=== PATIENT | male | born 1965 | race Caucasian/White ===

== ENCOUNTER → 2023-11-11 06:31 | Day surgery (SDC) | payer OTHER, SELFPAY ==
[2023-11-11 08:50] LABS: Glucose - Point of Care 98 mg/dl (70-99)
== END ==
LOC: GI 06:31
PROVIDERS: ATTENDING PHYSICIAN Internal Medicine Gastroenterology
DX: I85.10 Secondary esophageal varices without bleeding (principal); K74.60 Unspecified cirrhosis of liver; K21.00 Gastro-esophageal reflux disease with esophagitis, without bleeding; K76.6 Portal hypertension; R12 Heartburn
CPT/HCPCS: 43235; 82962

== ENCOUNTER → 2025-05-19 18:31 | Emergency (ER) | payer OTHER, SELFPAY ==
[2025-05-19 18:39] VITALS: BP 165/115
[2025-05-19 19:02] LABS: Hematocrit 47.0 % (39.0-52.0); Hemoglobin 16.4 g/dL (13.0-18.0); Mean Corp Hgb Conc. 34.9 g/dL (33.0-37.0); Mean Corpuscular Volume 87.5 fL (80.0-94.0); Nucleated Red Blood Cells % 0 % (-); Platelet Count 120 10^3/uL (130-400); Red Cell Dist. Width 12.2 % (11.5-14.5)
[2025-05-19 19:03] LABS: Urine Character Clear (Clear)
[2025-05-19 19:14] LABS: Urine Red Blood Cell None Seen /HPF (0-2); Urine Squamous Cell 0-2 /LPF (Few); Urine White Cell 0-2 /HPF (0-5)
[2025-05-19 19:32] LABS: Blood Urea Nitrogen 14 mg/dl (9-20); Calcium 9.6 mg/dl (8.4-10.2); Carbon Dioxide 26 mmol/L (22-30); Chloride 99 mmol/L (98-107); Glucose 370 mg/dl (70-99); Sodium 132 mmol/L (135-145); eGFR > 60.00
[2025-05-19 19:42] VITALS: BP 160/93
--- NOTE | 2025-05-19 19:45 | ED.GENMED ---
History of Present Illness
General
Chief Complaint: Male Genito-Urinary Symptoms
Source: patient
Time Seen by Provider: 05/19/25 19:29
History of Present Illness
History of Present Illness:
59-year-old male presents emergency department with complaints of right scrotal pain that has had for the past 5 to 7 days. He states that he does lifting in his job and wonders if this is related. He denies fever, chills, abdominal pain, pelvic
pain, incontinence, retention, dysuria, urgency, frequency, hematuria, discharge, or other complaints. Patient has a history of a varicocele status post repair on the left.
Past History
Past History
ED Past Medical History: GERD, HTN, NIDDM and Other (Obesity)
ED Past Surgical History: Urological
Social History
Tobacco: Non-smoker
Alcohol: None
Drug: None
Personal:
Living: with family
Employment: Employed
Family History
Family History: Hypertension
Phy Exam
Physical Exam
Physical Exam:
GENERAL: Alert , in no apparent distress
EYE: pupils equal and reactive
NECK: Supple, no significant adenopathy.
ENT: o/p clr, mmm.
CARDIAC: Regular rate and rhythm .
LUNGS: Clear breath sounds bilaterally, no acute respiratory distress, no wheezes/rales/rhonchi
ABDOMEN: Soft, without focal tenderness, no r/g, no cvat
NEUROLOGICAL: Alert and oriented, no focal neuro deficits
SKIN: Warm and dry, skin intact.
MUSCULOSKELETAL: No edema, well perfused.
PSYCH: Normal and appropriate interaction.
: Rn Maryjane present, nontender to palpation bilat testicles, mild edema ntoed R scrotal area with thickening of skin (suspect chronic), no bright erythema, fluctuance, or other abnormalities. No penile lesions or discharge noted. No abnormal
orientation of testicles..
Course
Orders/Labs/Results
Orders:
Orders
05/19/25 18:39
Scrotum US [US Scrotum] Urgent
Comment:
Reason For Exam: right testicular pain
05/19/25 18:51
Basic Metabolic Panel Urgent
Complete Blood Count/With Diff Urgent
Urinalysis Reflex To Culture Urgent
Date Specimen was Collected: 05/19/25
Time Specimen was Collected: 18:42
Urine Microscopic Reflex Cult Urgent
05/19/25 20:00
Ketorolac [Toradol] 15 mg .ROUTE .STK-MED ONE
05/19/25 20:01
Ketorolac [Toradol] 15 mg IM NOW STA
Abnormal Lab Results
05/19/25
18:51
WBC 11.9 H 10^3/uL
(4.8-10.8)
Plt Count 120 L 10^3/uL
(130-400)
MPV 12.0 H fL
(7.4-10.4)
Absolute Neuts (auto) 8.2 H 10^3/uL
(1.4-6.5)
Absolute Monos (auto) 1.4 H 10^3/uL
(0.1-0.6)
Lymphocytes % 17.9 L %
(20.5-51.1)
Monocytes % 11.7 H %
(1.7-9.3)
Sodium 132 L mmol/L
(135-145)
Creatinine 0.6 L mg/dL
(0.7-1.3)
Glucose 370 H mg/dl
(70-99)
Urine Glucose 4+ A
(Negative)
Urine Albumin (Reflex) 1+ A
(Neg - Trace)
05/19/25 18:51
05/19/25 18:51
Vital Signs
Initial and Last Documented VS:
Initial Vital Signs
Temp Pulse Resp BP Pulse Ox
98.5 F 115 18 165/115 98
05/19/25 18:39 05/19/25 18:39 05/19/25 18:39 05/19/25 18:39 05/19/25 18:39
Last Documented Vital Signs
Temp Pulse Resp BP Pulse Ox
98.5 F 103 24 160/93 93
05/19/25 18:39 05/19/25 21:15 05/19/25 21:15 05/19/25 19:42 05/19/25 21:15
*Pulse Oximetry
SaO2: 98
Oxygen Mode of Delivery: Room air
Patient hypoxic: no
*Critical Care Note
Total Time (30-74mins, 75-104mins- exclusive of procedures): Not Applicable
Update Note
Update Note:
Patient presents to the Emergency Department with ____right testicle pain
Number and Complexity of Problems Addressed at the Encounter
� Chronic conditions affecting care:
� Acute Exacerbation and/or Progression of Chronic Illness:
� Differential Diagnosis includes: But not limited to hydrocele, varicocele, epididymitis, torsion, etc. etc.
Amount and/or Complexity of Data to be Reviewed and Analyzed
� I performed an independent evaluation of and my interpretation is:
EKG:
CT:
Xrays:
Laboratory Studies: Generally unremarkable, mild nonspecific minor abnormalities, urine not suggestive of infection
Other:us No sonographic evidence for testicular torsion or epididymoorchitis.
2. Simple left epididymal head cyst.
3. Bilateral varicoceles.
4. Bilateral scrotal wall edema.
� Review of other/old records reveals:
� Clinical information was obtained by an independent historian:
� Prescriptions/Medications Considered but not given:
� Further testing considered but not performed:
Risk of Complications and/or Morbidity or Mortality of Patient Management
� Social determinants of health affecting care:
� Discussion with other providers (PCP, Hospitalists, Consultants, etc):
� Escalation of care including admission/observation vs risk of discharge considered: Patient noted to have varicocele, no torsion or epididymoorchitis. Stable for discharge with close urology follow-up. Of note, no signs or
symptoms to suggest cellulitis, Latanya's, etc. Ptrequesting work note, avoid heavy lifting, which is reasonable until seen by uro.
ED Attending Note
-
Portions of this chart may have been created with voice recognition software.� Occasional wrong word or��sound alike� substitutions may have occurred due to the inherent limitations of voice recognition software.
Discharge Plan
Departure
Patient Disposition: Home (Routine Discharge)
Date of Disposition: 05/19/25
Time of Disposition: 22:11
Patient with high blood pressure during this ER visit?: Yes
Condition: Good
Discharge Problem:
Right varicocele, Left varicocele
Instructions: Varicocele, BLOOD PRESSURE
Prescriptions:
No Action
Aller-7
2 tab PO DAILY PRN (Reason: allergies)
Rhinocort
2 puff intranasal DAILY
fexofenadine [Mucinex Allergy] 180 MG tablet
180 mg PO DAILY
amoxicillin-pot clavulanate 1 TABLET tablet
1 tab PO Q12 Qty: 20 0RF
amoxicillin-pot clavulanate 1 TABLET tablet
1 tab PO BID Qty: 14 0RF
amoxicillin-pot clavulanate 1 TABLET tablet
1 tab PO Q12 Qty: 19 0RF
ondansetron 4 mg Tablet,Disintegrating
4 mg PO TIDPRN PRN (Reason: nausea/vomiting) Qty: 9 0RF
Referrals:
Tanner Mcdonald MD [Family Provider, Family Practice]
Nolan Meza MD [Active, Urology] - Next open appointment
Stand Alone Forms: Return to Work
Activity Restrictions/Additional Instructions:
IF YOU DEVELOP INCREASING NEW OR PERSISTENT PAIN, FEVER, DISCHARGE, BLEEDING, DIFFICULTY URINATING, PAIN WITH URINATION, OR OTHER WORRISOME SIGNS, PLEASE RETURN TO THE ER IMMEDIATELY!
Interventions
Interventions:
*Risk Screen - Suicide Last Done: 05/19/25 18:39
*General Assessment Last Done: 05/19/25 18:39
*Neglect/Abuse Screening Last Done: 05/19/25 18:39
*ED- Fall Risk Assessment Last Done: 05/19/25 18:39
*ED COVID-19 Vaccine History Last Done: 05/19/25 18:39
ED-Male Genitourinary Assessment Last Done: 05/19/25 20:05
Discharge Date and Time
Print Language: LEBANESE
[2025-05-19] MEDS: TORADOL 15 MG IM (20:02)
[2025-05-19 20:03] VITALS: BMI 39.7
[2025-05-19 22:33] VITALS: BP 128/75
== END | disposition home or self-care (01) ==
LOC: EMR 18:31
PROVIDERS: Emergency Medicine; EMERGENCY PHYSICIAN Emergency Medicine; FAMILY PHYSICIAN Family Medicine; REFERRING PHYSICIAN Specialist
DX: I86.1 Scrotal varices (principal); K21.9 Gastro-esophageal reflux disease without esophagitis; I10 Essential (primary) hypertension; E11.9 Type 2 diabetes mellitus without complications; E66.9 Obesity, unspecified; Z79.84 Long term (current) use of oral hypoglycemic drugs; Z82.49 Family history of ischemic heart disease and other diseases of the circulatory system
CPT/HCPCS: 99284; 96372; 76870; 80048; 81003; 81015; 85025; 93976

== ENCOUNTER 2025-05-21 10:27 | Inpatient (IN) | payer OTHER, SELFPAY ==
[2025-05-21] VITALS (28 sets, daily range): BP systolic 112–164; BP diastolic 78–105; BMI 38.5; BMI 39.3
--- NOTE | 2025-05-21 05:25 | ED.GENMED ---
History of Present Illness
<WILLOW Joy - Last Filed: 05/21/25 10:41>
General
Chief Complaint: Male Genito-Urinary Symptoms
Source: patient
Exam Limitations: none
Time Seen by Provider: 05/21/25 06:05
Nursing documentation reviewed up to this point in time: agreed with
History of Present Illness
History of Present Illness:
Patient is a 59-year-old male with past medical history of varicocele hypertension diverticulitis, diabetes presents to the ER for evaluation. Patient was seen here several nights ago in May 19. He has a chronic varicocele and is supposed to
follow with urology. Patient reports yesterday and last night however he started having issues with his urine. He has been incontinent and reports he cannot control his urine. He still complains of some pain in the entire scrotum and the abdomen.
Patient had ultrasound done here 2 days ago which was negative for torsion or epididymoorchitis patient has bilateral varicoceles
Past History
<Stu Ortiz DO - Last Filed: >
Past History
ED Past Medical History: GERD, HTN, NIDDM and Other (Obesity)
ED Past Surgical History: Urological
Social History
Tobacco: Non-smoker
Alcohol: None
Drug: None
Personal:
Living: with family
Employment: Employed
Family History
Family History: Hypertension
Phy Exam
<WILLOW Joy - Last Filed: 05/21/25 10:41>
General Physical Exam
General Presentation: no apparent distress
General age: appears stated age
General Skin: warm and dry
General Habitus: normal
Sepsis
<WILLOW Joy - Last Filed: 05/21/25 10:41>
Sepsis Screening
Sepsis Assessment: Sepsis Ruled Out
Sepsis Screen
Sepsis Screen: Sepsis Ruled Out
Date: 05/21/25
Time: 10:41
<Baljit Lombardo MD - Last Filed: 05/21/25 19:15>
Sepsis Screen
Sepsis Screen: Sepsis Ruled Out
Date: 05/21/25
Time: 19:15
<Stu Ortiz DO - Last Filed: >
Sepsis Screen
Sepsis Screen: Possible Sepsis
Date: 05/21/25
Time: 05:25
Course
<WILLOW Joy - Last Filed: 05/21/25 10:41>
Orders/Labs/Results
Orders:
Orders
05/21/25 06:21
IV Insert/Care/Rem.- Treatment PRN
0.9% Sodium Chloride 1000 ml [Nss] 1,000 ml IV BOLUS
Ketorolac [Toradol] 15 mg IV NOW STA
05/21/25 06:22
CT Abd/Pel (IV only)-[facility] only Urgent
Comment:
Reason For Exam: lower abd pain
05/21/25 06:24
Complete Blood Count/With Diff Urgent
Comprehensive Metabolic Panel Urgent
Glycohemoglobin (HgbA1c) Urgent
05/21/25 08:08
Bladder Scan- Treatment ONCE
05/21/25 08:11
Electrocardiogram (*1) Stat
Reason for Study: Other
Other Reason for Exam: chest pain
Cardiac Monitoring- Treatment ONCE
EKG- Treatment ONCE
05/21/25 08:15
Vancomycin [Vancocin] 2,000 mg 0.9% Sodium Chloride 500 ml [Nss] 500 ml IV NOW
05/21/25 08:17
Diltiazem HCl [Cardizem] 10 mg IV NOW STA
Piperacillin/Tazo 3.375 Gram [Zosyn] 3.375 gram in 50 ml IV NOW
05/21/25 08:30
Diltiazem 125 mg/125 ml Nss [Cardizem] 125 mg in 125 ml IV PER PROTOCOL
Initial dose in mg/hr, then titrate:: 5
Titrate to keep:: Heart rate 80-100 bpm
Titrate by mg/hr:: 5 mg/hr
Frequency of titrations (minutes):: 15
Maximum dose in mg/hr:: 15
05/21/25 08:35
Lactic Acid Q4H
Comment: CANCEL 2nd LACTIC ACID IF 1st LACTIC ACID IS LESS THAN 2
Blood Culture Q30M
[place] Source: Blood/Venous
Specimen Description:
05/21/25 08:49
UROLOGY CONSULT Urgent
Consulting Provider: Diego Valladares
Was physician already notified: Yes
05/21/25 08:53
Blood Culture Q30M
[place] Source: Blood/Venous
Specimen Description:
05/21/25 09:11
Urinalysis Reflex To Culture Urgent
Date Specimen was Collected: 05/21/25
Time Specimen was Collected: 09:06
Urine Microscopic Reflex Cult Urgent
05/21/25 09:12
EKG [Electrocardiogram (*1)] Urgent
Reason for Study: Other
Other Reason for Exam: converted to sinus tach
EKG- Treatment ONCE
05/21/25 09:18
Catheter- Indwelling As Directed
Reason for insertion: Urology Determination
Nursing to Place Non Medication Order As Directed
Physician Order: keep scrotum elevated on towel roll
Above order entered?: Yes
05/21/25 Lunch
2000 calorie (17 carb) Diabetic
At Your Request: Full Participation
Tamsulosin [Flomax] 0.4 mg PO DAILY
05/21/25 10:09
Admit/Transfer Patient As Directed
Co-Sign Provider:
Level of Care: Inpatient admission
Assign to:: Telemetry
Physician / Group: Spike Anton
Diagnosis: scrotal infection, afib
Reason for Telemetry: Arrhythmia
Date to Stop Telemetry: 05/24/25
Time to Stop Telemetry: 11:00
Reason for Hospitalization: scrotal infection, afib
Expected length of stay greater than two midnights?: Yes
ELOS- Estimated Length of Stay in days: 3
I certify the patient meets the requirements for IP care: Yes
PRN Pain Medication Management As Directed
May give lesser potent ordered pain med per pt: Yes
preference::
Protocol:: Medication orders for pain may be administered in a
manner that supports deferring to patient preference
when the pt is:
- Requesting an ordered lesser potent pain medication.
Least to most potent pain medications are defined
as: acetaminophen < NSAID < tramadol < opioids
(morphine, oxycodone, hydromorphone).
- Requesting a lesser dose of the same medication IF
ORDERED.
- Requesting a less intrusive route of administration
if both routes are prescribed by the provider (PO <
IV).
05/21/25 10:13
Code Status As Directed
Resuscitation Status: Full Code
05/21/25 12:08
Bedside Glucose Monitoring As Directed
Frequency: AC&HS
Additional Instructions:: Change to q6h if pt on TPN, tube feeding or not eating
05/21/25 14:18
Acetaminophen [Tylenol] 650 mg PO Q4HPRN PRN
Bisacodyl [Dulcolax] 10 mg RECTAL [id number] PRN
Docusate W/Senna [Senokot-S] 1 tablet PO BIDPRN PRN
Oxycodone [Roxicodone] 10 mg PO Q4HPRN PRN
Oxycodone [Roxicodone] 5 mg PO Q4HPRN PRN
Polyethylene Glycol Powder [Miralax] 17 grams PO DAILYPRN PRN
05/21/25 14:18
Add On- LAB Routine
Tests Added?: HgbA1C to today's lab
CARDIOLOGY CONSULT Routine
Consulting Provider: Dario Awad
Was physician already notified: Yes
Reason for consult: afib - new
Activity As Directed
Activity Level: As Tolerated
Vital Signs As Directed
Frequency: Per unit guidelines
05/21/25 16:00
Ampicillin/Sulbactam 3 G [Unasyn] 3 gm 0.9% Sodium Chloride 100 ml [Nss] 100 ml IV Q6H
05/21/25 17:00
METFORMIN HCl [Glucophage] 500 mg PO BID@0800,1700
05/22/25 06:00
Basic Metabolic Panel IN AM
Complete Blood Count/No Diff IN AM
05/23/25 06:00
Basic Metabolic Panel IN AM
Complete Blood Count/No Diff IN AM
05/24/25 06:00
Basic Metabolic Panel IN AM
Complete Blood Count/No Diff IN AM
05/24/25 11:00
DC Protocol for Telemetry ONCE
Abnormal Lab Results
05/21/25 05/21/25 05/21/25
06:24 09:01 09:11
WBC 12.8 H 10^3/uL
(4.8-10.8)
Plt Count 107 L 10^3/uL
(130-400)
MPV 12.2 H fL
(7.4-10.4)
Abs Immat Gran (auto) 0.1 H 10^3/uL
(0-0.05)
Absolute Neuts (auto) 8.9 H 10^3/uL
(1.4-6.5)
Absolute Monos (auto) 1.6 H 10^3/uL
(0.1-0.6)
Immature Gran % 0.6 H %
(0-0.5)
Lymphocytes % 16.0 L %
(20.5-51.1)
Monocytes % 12.7 H %
(1.7-9.3)
Sodium 133 L mmol/L
(135-145)
Glucose 448 H mg/dl
(70-99)
Alkaline Phosphatase 130 H U/L
(38-126)
Albumin 3.3 L g/dl
(3.5-5.0)
Urine Ketones 1+ A
(Negative)
Urine Bacteria (Reflex) Few A
(Negative)
Urine Glucose 4+ A
(Negative)
Urine Albumin (Reflex) 1+ A
(Neg - Trace)
POC Glucose 334 H mg/dl
(70-99)
05/21/25 06:24
05/21/25 06:24
Vital Signs
Initial and Last Documented VS:
Initial Vital Signs
Temp Pulse Resp BP Pulse Ox
97.8 F 88 20 140/80 96
05/21/25 05:02 05/21/25 05:02 05/21/25 05:02 05/21/25 05:02 05/21/25 05:02
Last Documented Vital Signs
Temp Pulse Resp BP Pulse Ox
98.3 F 98 20 158/95 93
05/21/25 14:13 05/21/25 15:42 05/21/25 14:13 05/21/25 15:42 05/21/25 14:13
Tug Boat Captain consulted with Physician
Tug Boat Captain consulted with physician?: Yes
Name of Physician Consulted: BRUCE
<Baljit Lombardo MD - Last Filed: 05/21/25 19:15>
Orders/Labs/Results
Orders:
Orders
05/21/25 06:21
IV Insert/Care/Rem.- Treatment PRN
0.9% Sodium Chloride 1000 ml [Nss] 1,000 ml IV BOLUS
Ketorolac [Toradol] 15 mg IV NOW STA
05/21/25 06:22
CT Abd/Pel (IV only)-[facility] only Urgent
Comment:
Reason For Exam: lower abd pain
05/21/25 06:24
Complete Blood Count/With Diff Urgent
Comprehensive Metabolic Panel Urgent
Glycohemoglobin (HgbA1c) Urgent
05/21/25 08:08
Bladder Scan- Treatment ONCE
05/21/25 08:11
Electrocardiogram (*1) Stat
Reason for Study: Other
Other Reason for Exam: chest pain
Cardiac Monitoring- Treatment ONCE
EKG- Treatment ONCE
05/21/25 08:15
Vancomycin [Vancocin] 2,000 mg 0.9% Sodium Chloride 500 ml [Nss] 500 ml IV NOW
05/21/25 08:17
Diltiazem HCl [Cardizem] 10 mg IV NOW STA
Piperacillin/Tazo 3.375 Gram [Zosyn] 3.375 gram in 50 ml IV NOW
05/21/25 08:30
Diltiazem 125 mg/125 ml Nss [Cardizem] 125 mg in 125 ml IV PER PROTOCOL
Initial dose in mg/hr, then titrate:: 5
Titrate to keep:: Heart rate 80-100 bpm
Titrate by mg/hr:: 5 mg/hr
Frequency of titrations (minutes):: 15
Maximum dose in mg/hr:: 15
05/21/25 08:35
Lactic Acid Q4H
Comment: CANCEL 2nd LACTIC ACID IF 1st LACTIC ACID IS LESS THAN 2
Blood Culture Q30M
[place] Source: Blood/Venous
Specimen Description:
05/21/25 08:49
UROLOGY CONSULT Urgent
Consulting Provider: Diego Valladares
Was physician already notified: Yes
05/21/25 08:53
Blood Culture Q30M
[place] Source: Blood/Venous
Specimen Description:
05/21/25 09:11
Urinalysis Reflex To Culture Urgent
Date Specimen was Collected: 05/21/25
Time Specimen was Collected: 09:06
Urine Microscopic Reflex Cult Urgent
05/21/25 09:12
EKG [Electrocardiogram (*1)] Urgent
Reason for Study: Other
Other Reason for Exam: converted to sinus tach
EKG- Treatment ONCE
05/21/25 09:18
Catheter- Indwelling As Directed
Reason for insertion: Urology Determination
Nursing to Place Non Medication Order As Directed
Physician Order: keep scrotum elevated on towel roll
Above order entered?: Yes
05/21/25 Lunch
2000 calorie (17 carb) Diabetic
At Your Request: Full Participation
Tamsulosin [Flomax] 0.4 mg PO DAILY
05/21/25 10:09
Admit/Transfer Patient As Directed
Co-Sign Provider:
Level of Care: Inpatient admission
Assign to:: Telemetry
Physician / Group: Spike Anton
Diagnosis: scrotal infection, afib
Reason for Telemetry: Arrhythmia
Date to Stop Telemetry: 05/24/25
Time to Stop Telemetry: 11:00
Reason for Hospitalization: scrotal infection, afib
Expected length of stay greater than two midnights?: Yes
ELOS- Estimated Length of Stay in days: 3
I certify the patient meets the requirements for IP care: Yes
PRN Pain Medication Management As Directed
May give lesser potent ordered pain med per pt: Yes
preference::
Protocol:: Medication orders for pain may be administered in a
manner that supports deferring to patient preference
when the pt is:
- Requesting an ordered lesser potent pain medication.
Least to most potent pain medications are defined
as: acetaminophen < NSAID < tramadol < opioids
(morphine, oxycodone, hydromorphone).
- Requesting a lesser dose of the same medication IF
ORDERED.
- Requesting a less intrusive route of administration
if both routes are prescribed by the provider (PO <
IV).
05/21/25 10:13
Code Status As Directed
Resuscitation Status: Full Code
05/21/25 12:08
Bedside Glucose Monitoring As Directed
Frequency: AC&HS
Additional Instructions:: Change to q6h if pt on TPN, tube feeding or not eating
05/21/25 14:18
Acetaminophen [Tylenol] 650 mg PO Q4HPRN PRN
Bisacodyl [Dulcolax] 10 mg RECTAL [id number] PRN
Docusate W/Senna [Senokot-S] 1 tablet PO BIDPRN PRN
Oxycodone [Roxicodone] 10 mg PO Q4HPRN PRN
Oxycodone [Roxicodone] 5 mg PO Q4HPRN PRN
Polyethylene Glycol Powder [Miralax] 17 grams PO DAILYPRN PRN
05/21/25 14:18
Add On- LAB Routine
Tests Added?: HgbA1C to today's lab
CARDIOLOGY CONSULT Routine
Consulting Provider: Dario Awad
Was physician already notified: Yes
Reason for consult: afib - new
Activity As Directed
Activity Level: As Tolerated
Vital Signs As Directed
Frequency: Per unit guidelines
05/21/25 16:00
Ampicillin/Sulbactam 3 G [Unasyn] 3 gm 0.9% Sodium Chloride 100 ml [Nss] 100 ml IV Q6H
05/21/25 17:00
METFORMIN HCl [Glucophage] 500 mg PO BID@0800,1700
05/22/25 06:00
Basic Metabolic Panel IN AM
Complete Blood Count/No Diff IN AM
05/23/25 06:00
Basic Metabolic Panel IN AM
Complete Blood Count/No Diff IN AM
05/24/25 06:00
Basic Metabolic Panel IN AM
Complete Blood Count/No Diff IN AM
05/24/25 11:00
DC Protocol for Telemetry ONCE
Abnormal Lab Results
05/21/25 05/21/25 05/21/25
06:24 09:01 09:11
WBC 12.8 H 10^3/uL
(4.8-10.8)
Plt Count 107 L 10^3/uL
(130-400)
MPV 12.2 H fL
(7.4-10.4)
Abs Immat Gran (auto) 0.1 H 10^3/uL
(0-0.05)
Absolute Neuts (auto) 8.9 H 10^3/uL
(1.4-6.5)
Absolute Monos (auto) 1.6 H 10^3/uL
(0.1-0.6)
Immature Gran % 0.6 H %
(0-0.5)
Lymphocytes % 16.0 L %
(20.5-51.1)
Monocytes % 12.7 H %
(1.7-9.3)
Sodium 133 L mmol/L
(135-145)
Glucose 448 H mg/dl
(70-99)
Alkaline Phosphatase 130 H U/L
(38-126)
Albumin 3.3 L g/dl
(3.5-5.0)
Urine Ketones 1+ A
(Negative)
Urine Bacteria (Reflex) Few A
(Negative)
Urine Glucose 4+ A
(Negative)
Urine Albumin (Reflex) 1+ A
(Neg - Trace)
POC Glucose 334 H mg/dl
(70-99)
05/21/25 06:24
05/21/25 06:24
Vital Signs
Initial and Last Documented VS:
Initial Vital Signs
Temp Pulse Resp BP Pulse Ox
97.8 F 88 20 140/80 96
05/21/25 05:02 05/21/25 05:02 05/21/25 05:02 05/21/25 05:02 05/21/25 05:02
Last Documented Vital Signs
Temp Pulse Resp BP Pulse Ox
98.3 F 98 20 158/95 93
05/21/25 14:13 05/21/25 15:42 05/21/25 14:13 05/21/25 15:42 05/21/25 14:13
<Stu Ortiz, - Last Filed: >
Orders/Labs/Results
Orders:
Orders
05/21/25 06:21
IV Insert/Care/Rem.- Treatment PRN
0.9% Sodium Chloride 1000 ml [Nss] 1,000 ml IV BOLUS
Ketorolac [Toradol] 15 mg IV NOW STA
05/21/25 06:22
CT Abd/Pel (IV only)-[facility] only Urgent
Comment:
Reason For Exam: lower abd pain
05/21/25 06:24
Complete Blood Count/With Diff Urgent
Comprehensive Metabolic Panel Urgent
Glycohemoglobin (HgbA1c) Urgent
05/21/25 08:08
Bladder Scan- Treatment ONCE
05/21/25 08:11
Electrocardiogram (*1) Stat
Reason for Study: Other
Other Reason for Exam: chest pain
Cardiac Monitoring- Treatment ONCE
EKG- Treatment ONCE
05/21/25 08:15
Vancomycin [Vancocin] 2,000 mg 0.9% Sodium Chloride 500 ml [Nss] 500 ml IV NOW
05/21/25 08:17
Diltiazem HCl [Cardizem] 10 mg IV NOW STA
Piperacillin/Tazo 3.375 Gram [Zosyn] 3.375 gram in 50 ml IV NOW
05/21/25 08:30
Diltiazem 125 mg/125 ml Nss [Cardizem] 125 mg in 125 ml IV PER PROTOCOL
Initial dose in mg/hr, then titrate:: 5
Titrate to keep:: Heart rate 80-100 bpm
Titrate by mg/hr:: 5 mg/hr
Frequency of titrations (minutes):: 15
Maximum dose in mg/hr:: 15
05/21/25 08:35
Lactic Acid Q4H
Comment: CANCEL 2nd LACTIC ACID IF 1st LACTIC ACID IS LESS THAN 2
Blood Culture Q30M
[place] Source: Blood/Venous
Specimen Description:
05/21/25 08:49
UROLOGY CONSULT Urgent
Consulting Provider: Digeo Valladares
Was physician already notified: Yes
05/21/25 08:53
Blood Culture Q30M
[place] Source: Blood/Venous
Specimen Description:
05/21/25 09:11
Urinalysis Reflex To Culture Urgent
Date Specimen was Collected: 05/21/25
Time Specimen was Collected: 09:06
Urine Microscopic Reflex Cult Urgent
05/21/25 09:12
EKG [Electrocardiogram (*1)] Urgent
Reason for Study: Other
Other Reason for Exam: converted to sinus tach
EKG- Treatment ONCE
05/21/25 09:18
Catheter- Indwelling As Directed
Reason for insertion: Urology Determination
Nursing to Place Non Medication Order As Directed
Physician Order: keep scrotum elevated on towel roll
Above order entered?: Yes
05/21/25 Lunch
2000 calorie (17 carb) Diabetic
At Your Request: Full Participation
Tamsulosin [Flomax] 0.4 mg PO DAILY
05/21/25 10:09
Admit/Transfer Patient As Directed
Co-Sign Provider:
Level of Care: Inpatient admission
Assign to:: Telemetry
Physician / Group: Spike Anton
Diagnosis: scrotal infection, afib
Reason for Telemetry: Arrhythmia
Date to Stop Telemetry: 05/24/25
Time to Stop Telemetry: 11:00
Reason for Hospitalization: scrotal infection, afib
Expected length of stay greater than two midnights?: Yes
ELOS- Estimated Length of Stay in days: 3
I certify the patient meets the requirements for IP care: Yes
PRN Pain Medication Management As Directed
May give lesser potent ordered pain med per pt: Yes
preference::
Protocol:: Medication orders for pain may be administered in a
manner that supports deferring to patient preference
when the pt is:
- Requesting an ordered lesser potent pain medication.
Least to most potent pain medications are defined
as: acetaminophen < NSAID < tramadol < opioids
(morphine, oxycodone, hydromorphone).
- Requesting a lesser dose of the same medication IF
ORDERED.
- Requesting a less intrusive route of administration
if both routes are prescribed by the provider (PO <
IV).
05/21/25 10:13
Code Status As Directed
Resuscitation Status: Full Code
05/21/25 12:08
Bedside Glucose Monitoring As Directed
Frequency: AC&HS
Additional Instructions:: Change to q6h if pt on TPN, tube feeding or not eating
05/21/25 14:18
Acetaminophen [Tylenol] 650 mg PO Q4HPRN PRN
Bisacodyl [Dulcolax] 10 mg RECTAL [id number] PRN
Docusate W/Senna [Senokot-S] 1 tablet PO BIDPRN PRN
Oxycodone [Roxicodone] 10 mg PO Q4HPRN PRN
Oxycodone [Roxicodone] 5 mg PO Q4HPRN PRN
Polyethylene Glycol Powder [Miralax] 17 grams PO DAILYPRN PRN
05/21/25 14:18
Add On- LAB Routine
Tests Added?: HgbA1C to today's lab
CARDIOLOGY CONSULT Routine
Consulting Provider: Dario Awad
Was physician already notified: Yes
Reason for consult: afib - new
Activity As Directed
Activity Level: As Tolerated
Vital Signs As Directed
Frequency: Per unit guidelines
05/21/25 16:00
Ampicillin/Sulbactam 3 G [Unasyn] 3 gm 0.9% Sodium Chloride 100 ml [Nss] 100 ml IV Q6H
05/21/25 17:00
METFORMIN HCl [Glucophage] 500 mg PO BID@0800,1700
05/22/25 06:00
Basic Metabolic Panel IN AM
Complete Blood Count/No Diff IN AM
05/23/25 06:00
Basic Metabolic Panel IN AM
Complete Blood Count/No Diff IN AM
05/24/25 06:00
Basic Metabolic Panel IN AM
Complete Blood Count/No Diff IN AM
05/24/25 11:00
DC Protocol for Telemetry ONCE
Abnormal Lab Results
05/21/25 05/21/25 05/21/25
06:24 09:01 09:11
WBC 12.8 H 10^3/uL
(4.8-10.8)
Plt Count 107 L 10^3/uL
(130-400)
MPV 12.2 H fL
(7.4-10.4)
Abs Immat Gran (auto) 0.1 H 10^3/uL
(0-0.05)
Absolute Neuts (auto) 8.9 H 10^3/uL
(1.4-6.5)
Absolute Monos (auto) 1.6 H 10^3/uL
(0.1-0.6)
Immature Gran % 0.6 H %
(0-0.5)
Lymphocytes % 16.0 L %
(20.5-51.1)
Monocytes % 12.7 H %
(1.7-9.3)
Sodium 133 L mmol/L
(135-145)
Glucose 448 H mg/dl
(70-99)
Alkaline Phosphatase 130 H U/L
(38-126)
Albumin 3.3 L g/dl
(3.5-5.0)
Urine Ketones 1+ A
(Negative)
Urine Bacteria (Reflex) Few A
(Negative)
Urine Glucose 4+ A
(Negative)
Urine Albumin (Reflex) 1+ A
(Neg - Trace)
POC Glucose 334 H mg/dl
(70-99)
05/21/25 06:24
05/21/25 06:24
Vital Signs
Initial and Last Documented VS:
Initial Vital Signs
Temp Pulse Resp BP Pulse Ox
97.8 F 88 20 140/80 96
05/21/25 05:02 05/21/25 05:02 05/21/25 05:02 05/21/25 05:02 05/21/25 05:02
Last Documented Vital Signs
Temp Pulse Resp BP Pulse Ox
98.3 F 98 20 158/95 93
05/21/25 14:13 05/21/25 15:42 05/21/25 14:13 05/21/25 15:42 05/21/25 14:13
<WILLOW Joy - Last Filed: 05/21/25 10:41>
MDM/Problems Addressed
Differential Diagnosis Includes:
Not limited to UTI, diverticulitis
MDM/Problems Addressed:
0820: Patient incidentally was noted to be in rapid A-fib no prior history of A-fib. Heart rate 166. Patient was evaluated by ED physician Dr. Lombardo at bedside patient already completed 1 L fluids and IV Cardizem bolus and drip ordered.
As documented patient is a 59-year-old male with diabetes type 2 presented here 2 days ago for scrotal pain has chronic varicoceles which were again seen on ultrasound. Today he presented back to the ER with continued groin pain and no urinary
continence. His blood sugar was found to be 450. He has slightly slightly red thickened appearing tissue in his scrotal area. CAT scan today was done and does show subcutaneous edema within the ventral lower pelvic wall and no fluid collection.
IV antibiotics ordered
Urology was contacted and patient was seen by Dr. Rocha who does feel that pt's exam is consistent with a cellultis. . Pt was found to be in retention and mcrae was inserted by DR Rocha.
Pt did convert to NSR on cardizem. pt was admitted to the hospitaliast service.
Chronic conditions affecting care:
NIDDM, chronic varicocele
<WILLOW Joy - Last Filed: 05/21/25 10:41>
*Radiology
Radiology exam reviewed: radiology read reviewed
*Pulse Oximetry
Oxygen Mode of Delivery: Room air
Patient hypoxic: no
*EKG
Interpreted by ED Provider?: Yes
Interpretation: abnormal
Heart Rate: 166
Rhythm: a-fib
Ischemia: other (repeat EKG HR 103)
*Critical Care Note
Total Time (30-74mins, 75-104mins- exclusive of procedures): Not Applicable
comment:
Critical care statement: A total of 40 minutes of critical care time was provided for this patient. This includes management of unstable vital signs, evaluation of the patient at bedside, reviewing the patient's pertinent medical records, discussion
with consultants, review of old EKGs and review of pertinent medical records. This time with separate from time utilized to perform the aforementioned documented procedures
Data Reviewed
Review of Other/Old Records Reveals: Labs and Radiology Studies
<Stu Ortiz DO - Last Filed: >
*Pulse Oximetry
SaO2: 96
ED Attending Note
<Baljit Lombardo MD - Last Filed: 05/21/25 19:15>
ED Attending Note
Patient seen and examined by attending physician: Yes
ED Attending Note:
Patient seen in ED 2 days ago secondary to right groin/scrotal pain, diagnosed with a varicocele with recommendation for urology outpatient consultation, returns to ED secondary to worsening pain along with urinary incontinence over the past 24
hours. Denies fever or chills. Denies nausea or vomiting. Patient reports increased swelling and redness over the past 24 hours. Denies trauma. Denies abdominal pain. Denies diarrhea. Denies previous history of similar symptoms.
Physical Exam
General: mild distress, not acutely ill. afebrile.
Head: nc/at. eomi
Neck: supple. no meningeal signs.
Heart: tachycardic.
Lungs: no acute respiratory distress. clear bilaterally
Abdomen: normal bowel sounds. not tender.
: diffuse scrotal erythema/swelling noted with mild tenderness to palpation. erythema extending up to suprapubic region without involvement of perineum. no open wound noted
Neuro: alert and oriented x 3. no focal neurological deficits
Skin: no rash
Psychiatric: well kept. interactive and cooperative
Extremities: no edema. no calf tenderness.
During observation, patient noted to become tachycardic with irregular rhythm noted on monitor. Repeat EKG confirms rapid atrial fibrillation. Patient started on Cardizem bolus and infusion, along with IV fluids. During Cardizem infusion, patient
noted to have sinus rhythm on the monitor. EKG repeated, confirming sinus rhythm.
CT report reviewed and discussed with patient
History and exam concerning for likely scrotal cellulitis, with potential development of Latanya's gangrene. Patient evaluated in ED by Dr. Rocha, urology. Mcrae catheter placed secondary to urinary retention by Dr. Rocha. At this time, does
not feel that patient's clinical exam is consistent with Latanya's gangrene. As such, recommends admitting patient to hospitalist service on IV antibiotics. However, does recommend heparin for potential anticoagulation, with possibility that
patient may need to go to OR, if symptoms change clinically. Admitting hospitalist made aware.
Blood cx pending
Critical care statement: A total of 40 minutes of critical care time was provided for this patient. This includes management of unstable vital signs, evaluation of the patient at bedside, reviewing the patient's pertinent medical records, discussion
with consultants, review of old EKGs and review of pertinent medical records. This time with separate from time utilized to perform the aforementioned documented procedures
<Stu Ortiz DO - Last Filed: >
-
Portions of this chart may have been created with voice recognition software.� Occasional wrong word or��sound alike� substitutions may have occurred due to the inherent limitations of voice recognition software.
Discharge Plan
Departure
Patient Disposition: Admit
Date of Disposition: 05/21/25
Time of Disposition: 08:57
Admit to: IMU
Admit to doctor: hospitalist
Presentation/result/management discussed w/ accepting MD/DO: Hospitalist
Patient with high blood pressure during this ER visit?: Yes
Condition: Fair
Covid-19: Not Applicable
Discharge Problem:
Cellulitis of scrotum, Atrial fibrillation, rapid
Interventions
Interventions:
*Risk Screen - Suicide Last Done: 05/21/25 05:02
*General Assessment Last Done: 05/21/25 08:55
*Neglect/Abuse Screening Last Done: 05/21/25 05:02
*ED- Fall Risk Assessment Last Done: 05/21/25 08:55
*ED COVID-19 Vaccine History Last Done: 05/21/25 08:55
*Nursing Disposition Last Done: 05/21/25 14:01
ED-Male Genitourinary Assessment Last Done: 05/21/25 09:20
Discharge Date and Time
Discharge Date/Time: 05/21/25 13:50
[2025-05-21] MEDS: NSS 1000 IV (06:29)
[2025-05-21] MEDS: TORADOL 15 MG IV (06:35)
[2025-05-21 06:41] LABS: Hematocrit 42.7 % (39.0-52.0); Hemoglobin 14.9 g/dL (13.0-18.0); Mean Corp Hgb Conc. 34.9 g/dL (33.0-37.0); Mean Corpuscular Volume 87.0 fL (80.0-94.0); Nucleated Red Blood Cells % 0 % (-); Platelet Count 107 10^3/uL (130-400); Red Cell Dist. Width 12.2 % (11.5-14.5)
[2025-05-21 06:56] LABS: ALT (SGPT) 34 U/L (0-50); AST (SGOT) 26 U/L (17-59); Albumin 3.3 g/dl (3.5-5.0); Alkaline Phosphatase 130 U/L (38-126); Blood Urea Nitrogen 19 mg/dl (9-20); Calcium 9.1 mg/dl (8.4-10.2); Carbon Dioxide 25 mmol/L (22-30); Chloride 103 mmol/L (98-107); Estimated Creatinine Clearance > 125 ml/min; Glucose 448 mg/dl (70-99); Potassium 4.5 mmol/L (3.5-5.1); Sodium 133 mmol/L (135-145); Total Protein 6.4 g/dl (6.3-8.2); eGFR > 60.00
[2025-05-21] MEDS: CARDIZEM 10 MG IV (08:35)
[2025-05-21] MEDS: CARDIZEM 125 IV (08:39)
[2025-05-21] MEDS: ZOSYN 50 IV (08:40)
[2025-05-21 09:03] LABS: Glucose - Point of Care 334 mg/dl (70-99)
--- NOTE | 2025-05-21 09:12 | CON.MD ---
Consultation - Medical
-
see dictated note
pt with remote hx of varicoceles
poorly controlled diabetic
no baseline LUTS
presented to ER with right scrotal pain- scrotal u/s generally unremarkable other than some edema- discharged with augementin
now comes back with worsening pain and urinary incontinence
found to have BS >400/ elevated wbc and in afib
pvr 500cc
scrotal with mild edema and erythema
CT scan shows some pelvic stranding and edema but no gas
exam shows no evid of abscess/crepitus or gangrene
mcrae placed with return of 600cc of clear yellow urine
plan
ucx/blood cx's- iv antibx
BS control
being anticoagulated with heparin for new onset afib
scrotal elevation
mcrae and flomax
serial scrotal exams
Consultation
-
Date/Time Consultation Requested: 05/21/25 at 8:30am
Date/Time Consultation Performed: 05/21/25 at 9:15 am
Requesting Provider: ER
Performing Provider: Dr Rocha
Reason for Consultation: scrotal infection
[2025-05-21] MEDS: VANCOCIN 540 MG IV (09:15)
[2025-05-21 09:28] LABS: Urine Character Clear (Clear)
[2025-05-21 09:41] LABS: Urine Red Blood Cell 0-2 /HPF (0-2); Urine Squamous Cell 0-2 /LPF (Few); Urine White Cell 0-2 /HPF (0-5)
--- NOTE | 2025-05-21 10:22 | HPS.HSE ---
Family Physician
-
Family Physician: Tanner Mcdonald
Chief Complaint
-
scrotal pain
History of Present Illness
Patient is a 62-year-old male with past medical history of varicocele and resection in past, NIDDM, GERD came to ER with complaint of scrotal pain. Patient was in ER 3 days back for similar problem and had ultrasound of scrotum ruling out
testicular torsion. Patient was discharged home with plan for follow-up with urology in office although patient started to having worsening swelling and pain in the scrotum and came to ER for further evaluation. Patient was also found to be
hypoglycemic with blood glucose running in 450s. Patient stated of being noncompliant and hemoglobin A1c in range of 10-11 in the past. Beside Scrotal pain patient denies of having any abdominal pain. No nausea or vomiting. Patient is afebrile.
Patient was having also difficulty with urination and was incontinent at times. Patient also found to be in possibly new A-fib although denies of having any previous history. Denies of any chest pain/palpitation/dizziness.
Medical History
Past Medical History
Past Medical History: Reports Other
Additional Past Medical History:
history of varicocele and resection in past, NIDDM, GERD
Past Surgical History: Reports Other
Social History
Tobacco: Non-smoker
Alcohol: None
Family History
Family History: Not pertinent
Allergies / Home Medications
Allergies reflects when Allergies were last updated in [employer].
Home Medications with original date entered in [employer]
Allergy/Medication List:
Allergies
Allergy/AdvReac Type Severity Reaction Status Date / Time
hayfever Allergy Unknown Uncoded 05/21/25 05:05
Home Medications
metformin 500 mg tablet 500 mg PO BID@0800,1700 05/21/25
multivitamin 1 tab PO DAILY 05/21/25
Review of Systems
-
A 12 point ROS was completed and negative except as noted: Yes
Physical Exam
Vital Signs
Vital Signs
Temp Pulse Resp BP Pulse Ox
97.8 F 102 18 127/86 93
05/21/25 05:02 05/21/25 09:45 05/21/25 09:45 05/21/25 09:45 05/21/25 09:30
Physical Exam
General: No Apparent Distress
HEENT: Atraumatic
Respiratory: Clear
Cardiac: S1/S2 and Regular Rhythm; No Murmur or Rub
GI: Soft, Non Tender, Non Distended and Normal Bowel Sounds; No Organomegaly
Rectal: Deferred by Provider
Musculoskeletal: No Clubbing, No Cyanosis and No Edema
Skin: No Rash
Neuro: Nonfocal/grossly intact
Laboratory Results
-
05/21/25 06:24
05/21/25 06:24
Laboratory Results
Lactic Acid 1.4 mmol/L (0.7-2.0) 05/21/25 08:35
Total Bilirubin 1.1 mg/dl (0.2-1.3) 05/21/25 06:24
AST 26 U/L (17-59) 05/21/25 06:24
ALT 34 U/L (0-50) 05/21/25 06:24
Alkaline Phosphatase 130 U/L (38-126) H 05/21/25 06:24
Impression/Plan
-
CT a/p
1. Subcutaneous edema within the ventral lower pelvic wall, partially visualized. No fluid collection seen.
2. Otherwise no significant acute abnormality identified in the abdomen or pelvis, as described above. Changes as described

1. Scrotal cellulitis
History of varicocele
Sepsis - poa
- Patient has significant scrotal pain/inflammation on examination
- have associated leukocytosis and tachycardia
- CT abdomen pelvis showed subcutaneous edema. And varicocele. No hydrocele noted
- Patient got vancomycin and Zosyn in ER, switched to unasyn
- Blood and urine cs collected
- Urology evaluated
2. Acute urinary retention
- Reddy catheter replaced in ER by urology
- Eventual voiding trial per urology guidance
3. Paroxysmal A-fib with RVR
-No previous history of A-fib
-Initial EKG in ER showing patient tachycardic with irregular heart rhythm
-CHADVASC 0 and would not start anticoagulation
-On IV Cardizem at rate of 5 mg/hr
-Desizing Machine Operator evaluation requested
4. NIDDM - Uncontrolled
Hyperglycemia
- Patient stated of hemoglobin A1c in 10-11 range in the past, noncompliant with medication/diet current
- Recheck hemoglobin A1c
- Starting patient on moderate insulin sliding scale
-Patient blood glucose of 450 in ER, will recheck and provide short acting insulin
5. Hyponatremia
- Likely pseudohyponatremia with elevated blood glucose
DVT PPX - scd
Full code
Total time spent : 79 mins
I personally saw and examined the patient.
I have reviewed all diagnostic interpretations and treatment plans as written.
Time includes patient management by me, time spent at the patients bedside, time to review lab and imaging results, discussing patient care, documentation in the medical record, and time spent with the family or caregiver and discussing care plan
with RN/Consultants.
[2025-05-21] MEDS: FLOMAX 0.4 MG PO (10:26)
--- NOTE | 2025-05-21 11:45 | CM ---
CM reviewed chart and met with pt bedside in ED. Pt lives with his and daughter in 2 story home, no MAGALYS through garage.
Has first floor Half BA.
Locally, pt works in [place] and rents at room in [place]. He works 4 10 hr days then returns home.
Independently in ADLs, personal care and ambulation at baseline. No assistive devices, no DME.
Confirms prescription coverage.
No hx VN or SNF.
PCP: Tanner Mcdonald
Pharmacy: [facility] in [facility]
Anticipate discharge home, CM will continue to follow for any discharge planning needs.
[2025-05-21 13:33] LABS: Glucose - Point of Care 326 mg/dl (70-99)
[2025-05-21] MEDS: NOVOLOG vial 7 UNITS SC (13:41)
--- NOTE | 2025-05-21 13:59 | EDRN ---
Patient taken to room 337-1 on monitor on stretcher with Cardizem drip infusing by area intelligence technician.
--- NOTE | 2025-05-21 15:17 | CON.CAR ---
Addendum entered and electronically signed by Dario Awad MD 05/21/25 17:53:
I saw and evaluated the patient, and I provided the substantive portion of the medical decision making.
I reviewed and agree with the note by Elle López and it accurately reflects our care.
I personally performed the medical decision making of the this encounter and my assessment and plan is below:
He had no sense of arrhythmia when in atrial fibrillation. No cp no sob.
Currently he is feeling okay. On exam he has a regular rate and rhythm normal S1-S2 no murmur rubs gallops were appreciated lungs were clear to auscultation bilaterally. EKG showed
Sinus tachycardia when compared to the prior at 8:16 AM, atrial fibrillation with rapid ventricular response and nonspecific ST-T wave changes have been replaced by sinus rhythm.
Overall, impression is paroxysmal atrial fibrillation in a patient with hypertension and diabetes. CHADS2 Vascor is a 2. We discussed the possible risks and benefits of anticoagulation. As he is in sinus rhythm now, we will continue to monitor on
telemetry and priced out DOAC agents. I prefer Eliquis 5 mg twice daily. If this is affordable we will start. Will update his echo. Discussed the need for an outpatient sleep study, weight loss due to his morbid obesity and increasing his
activity level. He is quite hypertensive will add beta-jaime as this should help both with atrial fibrillation and hypertension. Remaining care as per medicine and urology. Plan discussed with the patient and his sister at the bedside.
Original Note:
Consultation
Consultation Request
Date/Time Consultation Requested: 05/21/25 2:15p
Date/Time Consultation Performed: 05/21/25 2:24p
Requesting Provider: Dr. Anton
Performing Provider: WILLOW Devine for Dr. Awad
Reason for Consultation: new rapid Afib
Medical History
-
Chief Complaint: symptoms
History of Present Illness:
Mr. Johnston is a 59 yo male with HTN, NIDDM, obesity, and varicocele, who presents to the ER with urinary incontinence and pain in his scrotum. He was noted to have rapid Afib in the ER, this is new. We are consulted for new onset rapid Afib. He
denies feeling any palpitations or racing heart beats, no cardiac symptoms.
Past Medical History
Past Medical History: Other (as above)
Social History
Tobacco: Non-Smoker
Personal:
Living: With Family
Family History
Family History: Hypertension
Allergies / Home Medications
Allergy/AdvReac Type Severity Reaction Status Date / Time
hayfever Allergy Unknown Uncoded 05/21/25 05:05
�Medication �Instructions �Recorded �Confirmed �Type
metformin 500 mg tablet 500 mg PO BID@0800,1700 Diabetes 05/21/25 05/21/25 History
multivitamin 1 tab PO DAILY Supplement 05/21/25 05/21/25 History
Review of Systems
-
History Source: Patient
All other systems: Negative unless noted
Physical Exam
Vital Signs
Temp Pulse Resp BP Pulse Ox
98.3 F 102 20 164/97 93
05/21/25 14:13 05/21/25 14:13 05/21/25 14:13 05/21/25 14:13 05/21/25 14:13
Lab Results
05/21/25 06:24
05/21/25 06:24
Physical Exam
General: Well Developed, Well Nourished and No Apparent Distress
HEENT: Normocephalic, Anicteric and Moist Mucous Membranes
Respiratory: Clear and Non Labored Respirations
Cardiac: S1/S2 and Regular Rhythm
Breast: Deferred by me
GI: Soft, Normal Bowel Sounds and Distended
Rectal: Deferred by Provider
Genito-urinary: Other (Reddy in place)
Musculoskeletal: No Clubbing and No Cyanosis
Skin: Warm and Dry
Neuro: AO x 3
Psych: Calm
Impression / Plan
-
Afib - new onset, duration unknown, RVR.
- IV Cardizem drip 5mg/hr and converted to NSR.
- maintaining NSR.
- add Lopressor 25mg BID for HTN and monitor on tele.
- check echo tomorrow.
HTN - elevated.
- will add Lopressor 25mg BID.
- monitor with IV Diltiazem.
symptoms - incontinence and scrotal swelling/pain infection.
- Urology following.
- Reddy in place.
NIDDM - poorly controlled, hyperglycemia.
- per hospitalist.
Obesity - chronic.
Data Reviewed
-
EKG: Tracing Personally Visualized and interpreted (initial EKG Afib 166 bpm, then EKG [address] 103 bpm)
Labs: Labs Reviewed by me
[2025-05-21] MEDS: LOPRESSOR 25 MG PO ×2 (15:42→20:22)
[2025-05-21] MEDS: UNASYN IV ×2 (15:43→22:25)
[2025-05-21 16:45] LABS: Glucose - Point of Care 384 mg/dl (70-99)
[2025-05-21] MEDS: GLUCOPHAGE 500 MG PO (17:09)
[2025-05-21] MEDS: NOVOLOG FLEXPEN-MODERATE RESISTANCE 9 UNITS SC (17:59)
[2025-05-21] MEDS: TYLENOL 650 MG PO (20:29)
[2025-05-21 21:32] LABS: Glucose - Point of Care 376 mg/dl (70-99)
[2025-05-22 03:00] VITALS: BP 147/87
[2025-05-22] MEDS: UNASYN IV ×4 (04:26→21:35)
[2025-05-22] MEDS: TYLENOL 650 MG PO ×2 (05:30→21:34)
[2025-05-22 05:51] LABS: Hematocrit 40.4 % (39.0-52.0); Hemoglobin 14.0 g/dL (13.0-18.0); Mean Corp Hgb Conc. 34.7 g/dL (33.0-37.0); Mean Corpuscular Volume 88.0 fL (80.0-94.0); Platelet Count 114 10^3/uL (130-400); Red Cell Dist. Width 12.4 % (11.5-14.5)
[2025-05-22 06:19] LABS: Blood Urea Nitrogen 16 mg/dl (9-20); Calcium 8.5 mg/dl (8.4-10.2); Carbon Dioxide 25 mmol/L (22-30); Chloride 103 mmol/L (98-107); Estimated Creatinine Clearance > 125 ml/min; Glucose 266 mg/dl (70-99); Potassium 4.3 mmol/L (3.5-5.1); Sodium 135 mmol/L (135-145); eGFR > 60.00
[2025-05-22 07:48] LABS: Glucose - Point of Care 240 mg/dl (70-99)
[2025-05-22 07:49] VITALS: BP 151/89
[2025-05-22] MEDS: FLOMAX 0.4 MG PO (07:49)
[2025-05-22] MEDS: GLUCOPHAGE 500 MG PO (07:49)
[2025-05-22] MEDS: LOPRESSOR 25 MG PO ×2 (07:49→10:19)
[2025-05-22] MEDS: NOVOLOG FLEXPEN-MODERATE RESISTANCE 3 UNITS SC (07:50)
[2025-05-22 09:25] LABS: Glycohemoglobin (HgbA1c) 13.1 % (4.0-5.6)
[2025-05-22] MEDS: LANTUS 0.15 UNITS SC (10:12)
[2025-05-22] MEDS: NOVOLOG FLEXPEN 3 UNITS SC ×2 (10:13→12:02)
[2025-05-22 11:09] VITALS: BP 137/95
[2025-05-22 11:22] LABS: Glucose - Point of Care 285 mg/dl (70-99)
[2025-05-22 11:41] VITALS: BMI 39.3
[2025-05-22] MEDS: NOVOLOG FLEXPEN-MODERATE RESISTANCE 5 UNITS SC ×2 (12:02→17:39)
--- NOTE | 2025-05-22 12:16 | PN.DE.MGMTRT ---
Insulin Management
- -
05/22/2025 Diabetes Management Consult
Patient admitted 05/21 with c/o R scrotal pain and new onset urinary incontinence. Patient also found to have new A-fib. PMH Obesity, Varicocele, HTN, Diverticulitis, diabetes, GERD. Prior to admission was taking metformin 500 mg BID. A1C 13.1%,
cr .6, eGFR > 60.
Patient is awake alert and oriented able to discuss diabetes care. States he has had diabetes ~ 5 or more years. He sees his primary doctor Harry for diabetes care. He thinks his last A1C was [address] Mcdonald advised he
start eating better. He states he has a glucose monitor and tests occasionally. Per review of chart patient has been non-compliant with diabetes care.
Discussed with patient that his A1C is 13.1% and he will require long acting insulin in AM and rapid acting insulin with each meal. He does work overnight so ideally will continue AM lantus, to be taken after he is home after work and AC novolog
will be taken with meals while at work. He is receptive.
Will have Diabetes Nurse Educator provide new meter and instruct on insulin. Patient to begin self injections with nursing supervision.
Discussed with nurse.
Will follow
Diabetes History
- -
Type of Diabetes: 2 requiring insulin
Pre-Admission Diabetes Regimen
05/22/25
05:27
Creatinine 0.6 L
Lab Results
Hemoglobin A1c 13.1 % (4.0-5.6) H 05/21/25 06:24
Insulin Pump Settings
IP Diabetes Regimen
05/21/25 05/21/25 05/21/25
13:30 16:44 21:30
Glucose
POC Glucose 326 H 384 H 376 H
05/22/25 05/22/25 05/22/25
05:27 07:47 11:21
Glucose 266 H
POC Glucose 240 H 285 H
Meal type: Dinner
Amount consumed: 100%
Patient Education
--- NOTE | 2025-05-22 12:25 | W.PN.CD ---
Today's Communication / Plan
-
increase metoprolol to 50mg bid
check miranda of eliquis
echo
Impression / Plan
-
Afib - new onset, duration unknown, RVR.
- maintaining NSR.
- added Lopressor 25mg BID for HTN but increasing for bp
- check echo today
-miranda out eliquis, [email or web address] is 2.
HTN - elevated.
- will add Lopressor 25mg BID--> increase to 50mg bid
-wt loss
-salt restriction
symptoms - incontinence and scrotal swelling/pain infection.
- Urology following.
- Reddy in place.
NIDDM - poorly controlled, hyperglycemia.
- per hospitalist.
Obesity - chronic.
Physical Exam
Vital Signs/Labs
Vital Signs
Temp Pulse Resp BP Pulse Ox
98.6 F 98 14 137/95 94
05/22/25 11:09 05/22/25 11:09 05/22/25 11:09 05/22/25 11:09 05/22/25 11:09
05/21/25 05/22/25 05/23/25
06:59 06:59 06:59
Actual Weight 299 lb 13.259 oz 306 lb
05/22/25 05:27
05/22/25 05:27
Physical Exam
Constitutional: No acute distress
Cardiovascular: Rhythm & rate is regular, Pedal edema is absent, JVD pressure is normal, Systolic murmur absent and Diastolic murmur absent
Respiratory: Respiratory effort normal, Lungs clear to auscul., Wheeze Absent and Crackles Absent
Neuro/Psych: AO x 3
Data Reviewed
-
Date of Service: May 22, 2025
Medical Decision Making: Review of Case with other Provider (Anton: increase bb and miranda out eliquis)
EKG: Other (tele NSR)
--- NOTE | 2025-05-22 14:27 | W.PN.HOSP.TC ---
Today's Communication/Plan
-
see note
Assessment / Plan
Assessment / Plan
CT a/p
1. Subcutaneous edema within the ventral lower pelvic wall, partially visualized. No fluid collection seen.
2. Otherwise no significant acute abnormality identified in the abdomen or pelvis, as described above. Changes as described

1. Scrotal cellulitis - improving
History of varicocele
Sepsis - poa
- Patient has significant scrotal pain/inflammation on examination
- have associated leukocytosis and tachycardia
- CT abdomen pelvis showed subcutaneous edema. And varicocele. No hydrocele noted
- Patient got vancomycin and Zosyn in ER, switched to unasyn
- Blood cs pending
- Urology following
2. Acute urinary retention
- Reddy catheter replaced in ER by urology
- Eventual voiding trial per urology guidance
3. Paroxysmal A-fib with RVR
-No previous history of A-fib
-JEANE-vasc 2. Cardi recommended Eliquis once copay checked
-Initial EKG in ER showing patient tachycardic with irregular heart rhythm
-TTE pending today
-Off cardizem drip, on Metoprolol PO
4. NIDDM - Uncontrolled
Hyperglycemia
- Patient stated of hemoglobin A1c in 10-11 range in the past, noncompliant with medication/diet current
- Admission BG ~ 450
- A1c 13
- Added lantus 15 u with Novolog premeal 3u AC on top of mod ISS
- Diabetes CLINICAL ENGINEERING MANAGER help requested
5. Hyponatremia - improved
- Likely pseudohyponatremia with elevated blood glucose
DVT PPX - scd
Full code
Total time spent ; 52 mins
Anticipated Discharge: 24 - 48 hours
Subjective/Interval History
-
Date of Service: May 22, 2025
Heart rate is improved off of Cardizem drip
Scrotal swelling is better
Continues to have some lower abdominal discomfort
No nausea or vomiting
Objective Data
-
Labs:
Laboratory Results
05/22/25
05:27
WBC 12.1 H
Hgb 14.0
Hct 40.4
Plt Count 114 L
Sodium 135
Potassium 4.3
Chloride 103
Carbon Dioxide 25
BUN 16
Creatinine 0.6 L
Glucose 266 H
Calcium 8.5
Vital Signs:
Vital Signs
Temp Pulse Resp BP Pulse Ox
98.6 F 98 14 137/95 94
05/22/25 11:09 05/22/25 11:09 05/22/25 11:09 05/22/25 11:09 05/22/25 11:09
I&O
05/21/25 05/22/25 05/23/25
06:59 06:59 06:59
Intake Total 1800 / 1800 1440 / 1440
Output Total 1750 / 1750 2049
Balance 50 / 50 -610 / -610
Review of Systems
-
Respiratory: Reports No Symptoms
Cardiac: Reports No Symptoms
Abdomen/GI: Reports Abdominal Pain; Denies Nausea or Vomiting
Physical Exam
-
General: No Apparent Distress and Comfortable
HEENT: Negative Oxygen
Respiratory: Clear to Auscultation
Cardiac: Regular Rhythm and S1/S2; Negative Murmur or Rub
Genito-urinary: Reddy and Other (Scrotal swelling/erythema)
Musculoskeletal: No Edema
Neuro: Awake, Alert, Oriented, No Motor Deficits and Nonfocal/Grossly Intact
Psych: Calm
[2025-05-22 15:03] VITALS: BP 143/87
--- NOTE | 2025-05-22 15:10 | PTCARENOTE ---
05/22/2025 DIABETES EDUCATION CONSULT
I met with patient to review diabetes management. He has had T2D for 5 years, he was only taking Metformin 500 mg BID and admits to forgetting medication and only checking blood sugar occasionally. States he has a meter at home.
I educated on physiology of T2D, organ damage, managing with medications, monitoring BG, nutrition, activity, sleep and managing stress. I reinforced signs of hyperglycemia, hypoglycemia and hypoglycemia protocol; BS parameters and recommended HbA1c
goals, glucometer and CGM instructions, glucose tracker, medic alert bracelet and outpatient DSME program. Written material provided.
I provided patient with a [employer] Gen glucometer sample kit. Provided verbal instructions on proper blood sugar testing technique, he declined self demonstration as he has been checking his glucose in the past. I educated and demonstrated on
insulin injection technique, timing, and storage. Discussed long and short acting insulin; onset/peak/duration, and encouraged her to administer his own injections with RN supervision while admitted. Discussed normal target glucose ranges and a
monitoring schedule 15 minutes before each meal when prescribed Novolog, and preprandial AM,
Encouraged patient to follow up with his PCP for post d/c appointment and to monitor medication and blood glucose levels. Provided treating RN with insulin pen needles to assist patient with self administration.
Provided list of endocrinologists if desired, to contact insurance company to verify in network status. Patient verbalized understanding.
[2025-05-22 16:38] LABS: Glucose - Point of Care 272 mg/dl (70-99)
[2025-05-22] MEDS: NOVOLOG FLEXPEN 6 UNITS SC (17:38)
[2025-05-22] MEDS: GLUCOPHAGE 1000 MG PO (17:47)
[2025-05-22 19:44] VITALS: BP 187/114
[2025-05-22] MEDS: LOPRESSOR 50 MG PO (20:52)
[2025-05-22 21:49] LABS: Glucose - Point of Care 315 mg/dl (70-99)
[2025-05-22 23:50] VITALS: BP 154/107
[2025-05-23] VITALS (8 sets, daily range): BP systolic 104–170; BP diastolic 64–110
[2025-05-23] MEDS: ROXICODONE 5 MG PO (02:17)
[2025-05-23] MEDS: UNASYN IV ×4 (04:52→21:41)
[2025-05-23 05:42] LABS: Hematocrit 40.6 % (39.0-52.0); Hemoglobin 14.0 g/dL (13.0-18.0); Mean Corp Hgb Conc. 34.5 g/dL (33.0-37.0); Mean Corpuscular Volume 87.7 fL (80.0-94.0); Platelet Count 132 10^3/uL (130-400); Red Cell Dist. Width 12.3 % (11.5-14.5)
[2025-05-23 06:08] LABS: Blood Urea Nitrogen 15 mg/dl (9-20); Calcium 8.4 mg/dl (8.4-10.2); Carbon Dioxide 27 mmol/L (22-30); Chloride 102 mmol/L (98-107); Estimated Creatinine Clearance > 125 ml/min; Glucose 254 mg/dl (70-99); Potassium 4.4 mmol/L (3.5-5.1); Sodium 134 mmol/L (135-145); eGFR > 60.00
--- NOTE | 2025-05-23 07:27 | PN.DE.MGMTRT ---
Insulin Management
- -
05/23/2025 Diabetes Management Consult Follow up
Patient admitted 05/21 with c/o R scrotal pain and new onset urinary incontinence. Patient also found to have new A-fib. PMH Obesity, Varicocele, HTN, Diverticulitis, diabetes, GERD. Prior to admission was taking metformin 500 mg BID. A1C 13.1%,
cr .6, eGFR > 60.
Patient is awake alert and oriented able to discuss diabetes care. States he has had diabetes ~ 5 or more years. He sees his primary doctor Harry for diabetes care. He thinks his last A1C was [address] Mcdonald advised he
start eating better. He states he has a glucose monitor and tests occasionally. Per review of chart patient has been non-compliant with diabetes care.
Discussed with patient that his A1C is 13.1% and he will require long acting insulin in AM and rapid acting insulin with each meal. He does work overnight so ideally will continue AM lantus, to be taken after he is home after work and AC novolog
will be taken with meals while at work. He is receptive.
Patient received 15 units lantus in AM with novolog 3 units AC increased to 6 units with dinner yesterday, glucose range 266 to 315.
Will increase AM lantus to 20 units and AC novolog to 10 units with moderate corrective insulin and metformin 1000 mg BID.
Diabetes Nurse Educator did provide new meter and instruct on insulin. Patient to begin self injections with nursing supervision.
Discussed with nurse.
Will follow
Diabetes History
- -
Type of Diabetes: 2 requiring insulin
Pre-Admission Diabetes Regimen
05/23/25
05:12
Creatinine 0.6 L
Lab Results
Hemoglobin A1c 13.1 % (4.0-5.6) H 05/21/25 06:24
Insulin Pump Settings
IP Diabetes Regimen
05/22/25 05/22/25 05/22/25
07:47 11:21 16:37
Glucose
POC Glucose 240 H 285 H 272 H
05/22/25 05/23/25
21:46 05:12
Glucose 254 H
POC Glucose 315 H
Patient Education
[2025-05-23 07:32] LABS: Glucose - Point of Care 190 mg/dl (70-99)
[2025-05-23] MEDS: FLOMAX 0.4 MG PO (07:46)
[2025-05-23] MEDS: GLUCOPHAGE 1000 MG PO ×2 (07:46→17:28)
[2025-05-23] MEDS: LOPRESSOR 50 MG PO (07:46)
[2025-05-23] MEDS: LANTUS 0.2 UNITS SC (07:52)
--- NOTE | 2025-05-23 08:56 | W.PN.CD ---
Today's Communication / Plan
-
new meds: coreg 25mg bid, eliquis 5mg bid, entresto 24/26mg bid
reviewed online copay cards with patient
BMP 2 weeks
we will arrange for outpatient f/u with us
Impression / Plan
-
Afib - new onset, duration unknown, RVR. Back in sinus, so seems paroxysmal
- maintaining NSR.
-CHADS2-VASC is 2. Eliquis 5mg bid.
-coreg 25mg bid for A fib and HTN
HTN - elevated.
- change metoprolol to coreg 25mg bid
-add entresto with EF 47%
-BMP 2 weeks
Mild cardiomyopathy, EF 47% on echo
-no sig valve disease
-suspect tachy induced from A fib
-will do PET stress as outpatient
-started on coreg, entresto; and will repeat echo as outpatient
Mildly dilated Asc Ao: 4.1cm
-outpatient f/u
NIDDM - poorly controlled, hyperglycemia.
- per hospitalist.
Obesity, morbid - chronic.
Physical Exam
Vital Signs/Labs
Vital Signs
Temp Pulse Resp BP Pulse Ox
98.7 F 95 17 170/110 95
05/23/25 07:00 05/23/25 07:46 05/23/25 07:00 05/23/25 07:46 05/23/25 07:00
05/22/25 05/23/25 05/24/25
06:59 06:59 06:59
Actual Weight 138.799 kg
05/23/25 05:12
05/23/25 05:12
Physical Exam
Constitutional: No acute distress and Comfortable
EENT: Moist mucous membranes
Cardiovascular: Rhythm & rate is regular, Pedal edema is absent, JVD pressure is normal and Systolic murmur absent
Respiratory: Respiratory effort normal and Lungs clear to auscul.
Neuro/Psych: AO x 3
Data Reviewed
-
Date of Service: May 23, 2025
EKG: Other (Tele: SR, brief A fib)
Echo: Report Reviewed by me
Labs: Labs Reviewed by me
[2025-05-23] MEDS: NOVOLOG FLEXPEN 10 UNITS SC ×3 (09:23→17:26)
[2025-05-23] MEDS: NOVOLOG FLEXPEN-MODERATE RESISTANCE 1 UNITS SC (09:24)
[2025-05-23] MEDS: ELIQUIS 5 MG PO ×2 (09:24→19:54)
--- NOTE | 2025-05-23 09:39 | W.PN.URO.CBU ---
Today's Communication / Plan
-
continue mcrae and flomax
continue scrotal elevation and add lasix
continue antibx and diabetic management
Assessment / Plan
-
scrotal cellulitis and edema
urinary retention
reviewed with med team
on eliquis
continuing diabetic control
no evid of advancing gu infx- but now with scrotal edema
will continue iv antibx
elevated scrotum- lasix to see if we can reduce edema
on flomax- depending on exam tomorrow will discuss mcrae removal for voiding trial- but given degree of retention and co-morbidities- pt may need to be discharged with catheter
Diagnosis
-
Date of Service: May 23, 2025
-
Patient Diagnosis:
scrotal cellulitis and edema
urinary retention
new onset afib
uncontrolled diabetes
Subjective
-
pt in bed
no fevers- wbc normalized
urine clear
sgi scrotal edema- but minimal erythema
Objective
-
Vital Signs
Temp Pulse Resp BP Pulse Ox
98.7 F 95 17 170/110 95
05/23/25 07:00 05/23/25 07:46 05/23/25 07:00 05/23/25 07:46 05/23/25 07:00
Intake and Output
05/22/25 05/23/25 05/24/25
06:59 06:59 06:59
Intake Total 1800 / 1800 2880 / 2880
Output Total 1750 / 1750 4450 / 4450
Balance 50 / 50 -1570 / -1570
Intake:
Oral fluids 1680 / 1680 2400 / 2400
IV piggybacks 120 / 120 480 / 480
Output:
Urine, Mcrae 1750 / 1750 3200 / 3200
Urine, Voided 1250 / 1250
Laboratory Results
05/23/25 05:12
05/23/25 05:12
Review of Systems
-
Constitutional: Fatigue
Respiratory: No Symptoms
Cardiac: No Symptoms
Abdomen/GI: No Symptoms
: Other (mcrae discomfort)
Physical Exam
-
General - no acute distress
Abdomen - soft, non-tender, obese
Genitalia - mcrae in place- testicles normal- scrotal edema- but minimal erythema- no crepitus/abscess/etc
[2025-05-23] MEDS: LASIX 40 MG IV (10:12)
[2025-05-23] MEDS: ENTRESTO 24 MG/26 MG 1 TAB PO ×2 (10:14→19:54)
[2025-05-23] MEDS: ROXICODONE 10 MG PO ×2 (10:40→20:01)
--- NOTE | 2025-05-23 11:50 | W.PN.HOSP.TC ---
Today's Communication/Plan
-
IV diuretic
Continue antibiotic
Blood glucose control
Possible discharge tomorrow
Assessment / Plan
Assessment / Plan
CT a/p
1. Subcutaneous edema within the ventral lower pelvic wall, partially visualized. No fluid collection seen.
2. Otherwise no significant acute abnormality identified in the abdomen or pelvis, as described above. Changes as described

1. Scrotal cellulitis - improving
History of varicocele
Sepsis - poa
- Patient has significant scrotal pain/inflammation on examination
- have associated leukocytosis and tachycardia
- CT abdomen pelvis showed subcutaneous edema. And varicocele. No hydrocele noted
- Patient got vancomycin and Zosyn in ER, switched to unasyn
- Blood cs negative till date
- Providing patient IV Lasix dose to help with scrotal swelling, discussed with urology
2. Acute urinary retention
- Reddy catheter replaced in ER by urology
- Eventual voiding trial per urology guidance
3. Paroxysmal A-fib with RVR
-No previous history of A-fib
-JEANE-vasc 2.
-Initial EKG in ER showing patient tachycardic with irregular heart rhythm
-Echo showing EF 47%. Mildly dilated ascending aorta of 4.1 cm.
-Off cardizem drip, on Metoprolol PO
-Patient will be discharge on oral Eliquis
4. NIDDM - Uncontrolled
Hyperglycemia
- Patient stated of hemoglobin A1c in 10-11 range in the past, noncompliant with medication/diet current
- Admission BG ~ 450
- A1c 13
- Diabetes MATERIAL PLANNER help requested -started on insulin
5. Hyponatremia - improved
- Likely pseudohyponatremia with elevated blood glucose
DVT PPX - scd
Full code
Anticipated Discharge: 24 - 48 hours
Subjective/Interval History
-
Date of Service: May 23, 2025
Subjective feeling better
Still has some scrotal pain
Afebrile overnight
Objective Data
-
Labs:
Laboratory Results
05/23/25
05:12
WBC 10.5
Hgb 14.0
Hct 40.6
Plt Count 132
Sodium 134 L
Potassium 4.4
Chloride 102
Carbon Dioxide 27
BUN 15
Creatinine 0.6 L
Glucose 254 H
Calcium 8.4
Vital Signs:
Vital Signs
Temp Pulse Resp BP Pulse Ox
97.9 F 89 17 129/84 92
05/23/25 11:00 05/23/25 11:00 05/23/25 11:00 05/23/25 11:00 05/23/25 11:00
I&O
05/22/25 05/23/25 05/24/25
06:59 06:59 06:59
Intake Total 1800 / 1800 2880 / 2880 120 / 120
Output Total 1750 / 1750 4450 / 4450 400 / 400
Balance 50 / 50 -1570 / -1570 -280 / -280
Review of Systems
-
Respiratory: Reports No Symptoms
Cardiac: Reports No Symptoms
Abdomen/GI: Reports No Symptoms
Physical Exam
-
General: Comfortable and Morbidly Obese
HEENT: Negative Oxygen
Respiratory: Clear to Auscultation
Cardiac: Regular Rhythm and S1/S2; Negative Murmur or Rub
Genito-urinary: Reddy and Other (Scrotal swelling/erythema)
Musculoskeletal: No Edema
Neuro: Awake, Alert, Oriented, No Motor Deficits and Nonfocal/Grossly Intact
Psych: Calm
[2025-05-23 12:18] LABS: Glucose - Point of Care 280 mg/dl (70-99)
[2025-05-23] MEDS: NOVOLOG FLEXPEN-MODERATE RESISTANCE 5 UNITS SC (12:35)
[2025-05-23] MEDS: LASIX 20 MG IV (15:47)
[2025-05-23 17:05] LABS: Glucose - Point of Care 242 mg/dl (70-99)
[2025-05-23 17:26] LABS: Blood Urea Nitrogen 19 mg/dl (9-20); Calcium 8.9 mg/dl (8.4-10.2); Carbon Dioxide 28 mmol/L (22-30); Chloride 98 mmol/L (98-107); Estimated Creatinine Clearance > 125 ml/min; Glucose 282 mg/dl (70-99); Magnesium 1.5 mg/dl (1.6-2.3); Potassium 4.2 mmol/L (3.5-5.1); Sodium 131 mmol/L (135-145); eGFR > 60.00
[2025-05-23] MEDS: NOVOLOG FLEXPEN-MODERATE RESISTANCE 3 UNITS SC (17:27)
[2025-05-23 18:38] LABS: Hepatitis C Antibody Negative (Negative)
[2025-05-23] MEDS: COREG 25 MG PO (19:53)
[2025-05-23 22:16] LABS: Glucose - Point of Care 287 mg/dl (70-99)
[2025-05-24 03:08] VITALS: BP 123/90
[2025-05-24] MEDS: UNASYN IV ×3 (03:33→16:14)
[2025-05-24 05:53] LABS: Hematocrit 41.5 % (39.0-52.0); Hemoglobin 14.6 g/dL (13.0-18.0); Mean Corp Hgb Conc. 35.2 g/dL (33.0-37.0); Mean Corpuscular Volume 87.2 fL (80.0-94.0); Platelet Count 134 10^3/uL (130-400); Red Cell Dist. Width 12.0 % (11.5-14.5)
[2025-05-24 06:01] LABS: Blood Urea Nitrogen 22 mg/dl (9-20); Calcium 8.8 mg/dl (8.4-10.2); Carbon Dioxide 27 mmol/L (22-30); Chloride 98 mmol/L (98-107); Estimated Creatinine Clearance > 125 ml/min; Glucose 249 mg/dl (70-99); Potassium 4.3 mmol/L (3.5-5.1); Sodium 130 mmol/L (135-145); eGFR > 60.00
[2025-05-24] MEDS: ROXICODONE 10 MG PO (06:26)
[2025-05-24 06:46] VITALS: BMI 38.9
--- NOTE | 2025-05-24 07:18 | W.PN.URO.CBU ---
Today's Communication / Plan
-
voiding trial
Assessment / Plan
-
scrotal cellulitis and edema
urinary retention
reviewed with med team
on eliquis
continuing diabetic control
scrotal exam stable in terms of infx- edema improved
will continue iv antibx while in house- outpt would rec 2 week oral course
would continue lasix if possible over the next 72hrs to help reduce scrotal edema
on flomax- mcrae out today for voiding trial- but if unable to void would need to be discharged with cath
Diagnosis
-
Date of Service: May 24, 2025
-
Patient Diagnosis:
scrotal cellulitis and edema
urinary retention
new onset afib
uncontrolled diabetes
Subjective
-
pt complains of low grade pain in scrotum and suprapubic area
no fevers- wbc essentially unchanged
urine clear
Objective
-
Vital Signs
Temp Pulse Resp BP Pulse Ox
98.6 F 89 16 123/90 92
05/24/25 03:08 05/24/25 03:08 05/24/25 03:08 05/24/25 03:08 05/24/25 03:08
Intake and Output
05/23/25 05/24/25 05/25/25
06:59 06:59 06:59
Intake Total 2880 / 2880 1850 / 1850
Output Total 4450 / 4450 4075 / 4075
Balance -1570 / -1570 -2225 / -2225
Intake:
Oral fluids 2400 / 2400 1620 / 1620
IV piggybacks 480 / 480 230 / 230
Output:
Urine, Mcrae 3200 / 3200 4075 / 4075
Urine, Voided 1250 / 1250
Laboratory Results
05/24/25 05:14
05/24/25 05:14
Physical Exam
-
General -no acute distress
Abdomen - obese-soft, non-tender, mild supra-pubic induration- no erythema- unchanged
Genitalia - mcrae removed- again slight erythema- decreased edema- 1 dime sized area of superficial skin necrosis- no abscess- crepitus or drainage
--- NOTE | 2025-05-24 07:39 | PN.DE.MGMTRT ---
Insulin Management
- -
05/24/2025: Diabetes Management Follow up
Patient admitted 05/21 with c/o R scrotal pain and new onset urinary incontinence. Patient also found to have new A-fib. PMH Obesity, Varicocele, HTN, Diverticulitis, diabetes, GERD. Prior to admission was taking metformin 500 mg BID. A1C 13.1%,
cr .6, eGFR > 60.
States he has had diabetes ~ 5 or more years. He sees his primary doctor Harry for diabetes care. He thinks his last A1C was [address] Mcdonald advised he start eating better. Reports he has a glucose monitor and tests
occasionally. Per review of chart patient has been non-compliant with diabetes care.
Patient is awake alert and oriented,sitting up in bed, offers no complaints, able to discuss diabetes care.
Patient received 15 units Lantus in AM with NovoLog AC increased to10 units yesterday, glucose remained elevated >200 range 242 to 280.
Will increase AM Lantus to 24 units and AC NovoLog to 15 units with moderate corrective insulin and metformin 1000 mg BID.
Discussed with patient that his A1C is 13.1% and he will require long acting insulin in AM and rapid acting insulin with each meal. He does work overnight so ideally will continue AM Lantus, to be taken after he is home after work and AC NovoLog
will be taken with meals while at work. He is receptive.
Diabetes Nurse Educator did provide new meter and instructions on insulin administration. Patient to begin self injections with nursing supervision.
Discussed with nurse. Will cont to follow
Diabetes History
- -
Type of Diabetes: 2 requiring insulin
Pre-Admission Diabetes Regimen
05/23/25 05/24/25
17:01 05:14
Creatinine 0.7 0.6 L
Lab Results
Hemoglobin A1c 13.1 % (4.0-5.6) H 05/21/25 06:24
Insulin Pump Settings
IP Diabetes Regimen
05/23/25 05/23/25 05/23/25
12:17 17:01 17:03
Glucose 282 H
POC Glucose 280 H 242 H
05/23/25 05/24/25
22:13 05:14
Glucose 249 H
POC Glucose 287 H
Meal type: Breakfast
Meal type: Lunch
Amount consumed: 100%
Amount consumed: 100%
Patient Education
[2025-05-24 07:44] LABS: Glucose - Point of Care 256 mg/dl (70-99)
[2025-05-24 07:53] VITALS: BP 126/76
[2025-05-24] MEDS: LANTUS 0.24 UNITS SC (08:53)
[2025-05-24] MEDS: NOVOLOG FLEXPEN-MODERATE RESISTANCE 5 UNITS SC ×2 (08:54→12:26)
[2025-05-24] MEDS: NOVOLOG FLEXPEN 15 UNITS SC ×3 (08:54→18:04)
[2025-05-24] MEDS: ROXICODONE 5 MG PO (08:58)
[2025-05-24] MEDS: COREG 25 MG PO (08:59)
[2025-05-24] MEDS: ENTRESTO 24 MG/26 MG 1 TAB PO (08:59)
[2025-05-24] MEDS: GLUCOPHAGE 1000 MG PO ×2 (08:59→18:06)
[2025-05-24] MEDS: ELIQUIS 5 MG PO (08:59)
[2025-05-24] MEDS: FLOMAX 0.4 MG PO (08:59)
[2025-05-24] MEDS: NOVOLOG FLEXPEN SC (09:30)
[2025-05-24 11:26] VITALS: BP 121/75
[2025-05-24 11:46] LABS: Glucose - Point of Care 289 mg/dl (70-99)
[2025-05-24] MEDS: LASIX 40 MG IV (12:26)
--- NOTE | 2025-05-24 13:03 | CM ---
Patient seen at bedise
discharged today
IMM n/a
PLAN: Home no needs
family to transport
--- NOTE | 2025-05-24 13:44 | W.DCSUMMARY ---
Discharge Summary
Discharge Data
Date of Admission: 05/21/25
Date of Discharge: 05/24/25
-
Pending Results: No
Hospital Course
Discharging Physician : Dr Spike Anton
Disposition : Home
Primary care physician : Dr. Tanner Mcdonald
Principal Discharge diagnosis :
Scrotal cellulitis
Sepsis
Paroxysmal atrial fibrillation with rapid ventricular rate
Uncontrolled type 2 diabetes mellitus
Pseudohyponatremia
Acute urinary retention
Chronic Discharge diagnosis :
Obesity
Physical examination:
HEENT: No cyanosis.
NECK: Supple. No JVD.
RESPIRATORY: Lungs clear to auscultation.
CVS: S1, S2 normal. RRR. No murmur, rub or gallop.
ABDOMEN: Soft, non-tender. No distension. BS+/normal.
: Scrotal erythema and swelling, tenderness +
EXTREMITIES: No peripheral cyanosis or edema.
QA LEAD: AOx3. No focal deficits.
Hospital Course :
Patient is a 59-year-old male with above-mentioned past medical history came to ER with worsening of scrotal swelling and pain. Patient has history of varicocele and was in ER 3 days before this admission where patient had an ultrasound ruling out
any torsion or hydrocele. Patient was discharged home with plan for follow-up in urology office although patient started having worsening swelling inflammation of scrotum and came to ER for further evaluation. On exam patient was noted to having
significant cellulitis and area without any skin breaks. Urology was involved in care and patient required a Reddy catheter placement for urinary retention. Patient was started on IV antibiotic with slow improvement skin infection. To help
scrotal swelling patient was provided IV diuretics as well. After clinical improvement patient was discharged on 2 weeks of oral antibiotic therapy and 5 days of oral Lasix therapy. Reddy catheter was removed and patient was successful with
voiding trial.
Patient was also found to have new A-fib with brief RVR episode requiring IV diltiazem in the ER. Cardiology was involved in care and recommended for patient to be maintained on Eliquis for anticoagulation. Rate was controlled with beta-jaime
and patient being discharged on Coreg. Entresto added per cardiology recommendation as well.
Patient also have uncontrolled diabetes with hemoglobin A1c of 13, patient only taking metformin and at times not compliant with oral medication as well. Patient was started on insulin Lantus/NovoLog regimen and diabetes nurse protection was
involved in care. Patient is being discharged on insulin for diabetes control and will need to follow-up with primary care physician for further adjustment.
Important imaging findings :
None
Procedure findings :
None
Discharge Plan
-
Patient Disposition: Home (Routine Discharge)
Discharge Diagnosis/Procedures: Scrotal cellulitis, Uncontrolled diabeters, Urinary retention, New Afib
Condition: Fair
Diet: 2 Gram Sodium and Diabetic, Carb Controlled
Activity: As tolerated
Driving Restrictions: As prior to admission
Bathing Restrictions: OK to Shower
Referrals:
Tanner Mcdonald MD [Family Provider, Family Practice] - in one week
Emiliana Cha NP [Specified Professional Personl, Cardiology] - 06/20/25 11:00 am
Nolan Meza MD [Active, Urology] - in two to three weeks
Prescriptions:
New
Eliquis 5 mg tablet
5 mg PO BID Qty: 60 0RF
carvedilol 25 mg Tablet
25 mg PO BID Qty: 60 2RF
tamsulosin 0.4 mg Capsule
0.4 mg PO DAILY Qty: 30 2RF
sacubitril-valsartan 24-26 mg Tablet
1 tab PO BID Qty: 60 2RF
insulin glargine [Lantus Solostar U-100 Insulin] 100 unit/mL (3 mL) insulin pen
25 unit SC DAILY Qty: 15 1RF
metformin 1,000 mg Tablet
1,000 mg PO BID@0800,1700 Qty: 60 2RF
insulin aspart U-100 100 unit/mL (3 mL) Insulin Pen
15 unit SC AC Qty: 15 1RF
acetaminophen 325 mg Tablet
650 mg PO Q4HPRN PRN (Reason: mild pain/[place]/temp> 100.4F) Qty: 90 0RF
(DME) Work note
See Rx Instructions .Route .MEDSUPPLY Qty: 1 0RF
Rx Instructions:
Mr Derrick Johnston is clear to go back to work from 05/30/25.
amoxicillin-pot clavulanate 875-125 mg tablet
1 tab PO BID Qty: 30 0RF
furosemide [Lasix] 40 mg tablet
40 mg PO DAILY Qty: 5 0RF
Continued
multivitamin Tablet
1 tab PO DAILY
Discontinued
metformin 500 mg Tablet
500 mg PO BID@0800,1700
Discharge Orders:
Discharge Patient (As Directed); Ordered 05/24/25
Ordered By: Spike Anton
Discharge Date and Time
Print Language: SERBIAN
[2025-05-24 16:43] VITALS: BP 101/64
[2025-05-24 17:15] LABS: Glucose - Point of Care 205 mg/dl (70-99)
[2025-05-24] MEDS: NOVOLOG FLEXPEN-MODERATE RESISTANCE 3 UNITS SC (18:04)
== END 2025-05-24 19:18 | disposition home or self-care (01) | DRG 872 ==
LOC: 3 WEST ACU 10:27
PROVIDERS: Nurse Practitioner; ADMITTING PHYSICIAN Hospitalist; CONSULT PHYSICIAN Internal Medicine Cardiovascular Disease; EMERGENCY PHYSICIAN Emergency Medicine; FAMILY PHYSICIAN Family Medicine; OTHER PHYSICIAN Specialist
DX: A41.9 Sepsis, unspecified organism (principal); R32 Unspecified urinary incontinence; I10 Essential (primary) hypertension; E11.65 Type 2 diabetes mellitus with hyperglycemia; I86.1 Scrotal varices; K21.9 Gastro-esophageal reflux disease without esophagitis; E66.9 Obesity, unspecified; I48.0 Paroxysmal atrial fibrillation; N49.2 Inflammatory disorders of scrotum; R33.9 Retention of urine, unspecified; J30.1 Allergic rhinitis due to pollen; N50.89 Other specified disorders of the male genital organs; E66.01 Morbid (severe) obesity due to excess calories; Z68.38 Body mass index [BMI] 38.0-38.9, adult; Z91.148 Patient's other noncompliance with medication regimen for other reason
CPT/HCPCS: 51702; 51798; 74177; 80048; 80053; 81003; 81015; 82962; 83036; 83605; 83735; 84100; 85025; 85027; 86803; 87040; 93005; 93306; 96365; 96366; 96367; 96375; 99291; Q9950; Q9967

== ENCOUNTER → 2025-09-02 10:19 | Outpatient (REF) | payer OTHER, SELFPAY | LOC: RCS 10:19 | PROVIDERS: ATTENDING PHYSICIAN Nurse Practitioner; FAMILY PHYSICIAN Family Medicine | DX: I10 Essential (primary) hypertension (principal); I42.0 Dilated cardiomyopathy | CPT/HCPCS: 93308; 93321; 93325 ==